=== PATIENT | female | born 1960 | race Caucasian/White ===

== ENCOUNTER 2017-10-25 13:30 | Day surgery (SDC) | payer MEDICAID, SELFPAY ==
[2017-10-25 14:00] VITALS: BP 178/99; PULSE 61; RESP 20
[2017-10-25 14:23] VITALS: BP 173/92; PULSE 72; RESP 18; TEMP 36.4; O2SAT 97
[2017-10-25 14:49] VITALS: BP 151/98; PULSE 75; RESP 20
--- NOTE | 2017-10-25 14:53 | P.PCN_ITS ---
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 She did not get much benefit after bilateral SI joint injections. She is complaining today primarily of low back pain. MRI does show degenerative changes throughout lumbar spine with facet arthropathy at multiple levels. We will do bilateral facet joint injection/medial branch block L3-L4, L4-L5 and L5-S1 today to see if this helps with pain symptoms. Procedure Details:: Lumbar medial branch block Informed consent was obtained and the risks and benefits of the procedure was explained to the patient. The back was prepped using ChloraPrep. The skin and subcutaneous tissues were anesthetized using lidocaine. I placed 22-gauge spinal needles into the facet joint/medial branches of L3-L4, L4-L5 and L5-S1 bilaterally. Needle placement was confirmed with dye. After this we injected 3 mL bupivacaine 0.25% and Depo-Medrol 13 mg into each facet joint/medial branch of L3-L4, L5 and L5-S1 bilaterally. We used a total of 80 mg Depo- Medrol for all 3 levels bilaterally. The patient tolerated the procedure well with no complications. Plan and Disposition:: We will follow-up with her in 2 weeks. We will reevaluate her symptoms at that time.
[2017-10-25 14:55] VITALS: BP 154/79; PULSE 69; RESP 20; TEMP 36.4; O2SAT 98
== END 2017-10-25 14:57 | disposition home or self-care (01) ==
PROVIDERS: Family Provider Internal Medicine Adolescent Medicine; PCP Internal Medicine Adolescent Medicine; Visit Provider Anesthesiology
DX: M51.36 Other intervertebral disc degeneration, lumbar region (principal); M47.896 Other spondylosis, lumbar region; M54.06 Panniculitis affecting regions of neck and back, lumbar region
CPT/HCPCS: 64493; 64494; 64495; J1030; Q9966

== ENCOUNTER → 2017-11-18 15:10 | Outpatient (POV) | payer MEDICAID, SELFPAY ==
[2017-11-18 15:18] VITALS: BP 146/83; PULSE 81; RESP 20; O2SAT 98; BMI 41.3
--- NOTE | 2017-11-18 15:28 | HMH.PAINSOAP ---
[facility] Pain Management SOAP Note Subjective:: Patient is a pleasant 56-year-old white female who we are treating for low back pain and bilateral hip pain. She is status post bilateral medial branch blocks of L3-L4, L4-L5 and L5-S1 bilaterally. She did very well from these with good relief of pain symptoms for 3-4 days. She was 80% better. Her pain is starting to return. We will request repeat medial branch blocks/facet joint injections of L3-L4, L4-5 and L5-S1 bilaterally again today. Objective:: Alert and oriented ?3 in no acute distress. Patient does have an antalgic gait. Motor strength of the lower extremities is 5/5. There is no gross sensory deficit. Assessment:: Degenerative disc disease of lumbar spine with lumbar spondylosis and facet arthropathy. Plan:: This patient got 80% relief for 3-4 days from bilateral facet joint injection/medial branch blocks of L3-L4, L4-5 and L5-S1. Her pain is starting to return. We will request repeat bilateral medial branch blocks/facet joint injections of L3-L4, L4-5 and L5-S1 again.
--- NOTE | 2017-11-18 15:31 | P.CONS_ITS ---
[facility] Pain Management SOAP Note Subjective:: Patient is a pleasant 56-year-old white female who we are treating for low back pain and bilateral hip pain. She is status post bilateral medial branch blocks of L3-L4, L4-L5 and L5-S1 bilaterally. She did very well from these with good relief of pain symptoms for 3-4 days. She was 80% better. Her pain is starting to return. We will request repeat medial branch blocks/facet joint injections of L3-L4, L4-5 and L5-S1 bilaterally again today. Objective:: Alert and oriented ?3 in no acute distress. Patient does have an antalgic gait. Motor strength of the lower extremities is 5/5. There is no gross sensory deficit. Assessment:: Degenerative disc disease of lumbar spine with lumbar spondylosis and facet arthropathy. Plan:: This patient got 80% relief for 3-4 days from bilateral facet joint injection/ medial branch blocks of L3-L4, L4-5 and L5-S1. Her pain is starting to return. We will request repeat bilateral medial branch blocks/facet joint injections of L3-L4, L4-5 and L5-S1 again.
== END ==
PROVIDERS: Family Provider Internal Medicine Adolescent Medicine; PCP Internal Medicine Adolescent Medicine; Visit Provider Anesthesiology
DX: M51.16 Intervertebral disc disorders with radiculopathy, lumbar region (principal)
CPT/HCPCS: 99212

== ENCOUNTER 2018-01-15 14:08 | Day surgery (SDC) | payer MEDICAID, SELFPAY ==
[2018-01-15 14:40] VITALS: BP 122/56; PULSE 80; RESP 18; TEMP 36.6; O2SAT 96; BMI 41.3
[2018-01-15 15:11] VITALS: BP 146/87; PULSE 89; RESP 8
[2018-01-15 15:12] VITALS: BP 139/86; PULSE 75; RESP 20
--- NOTE | 2018-01-15 15:18 | P.PCN_ITS ---
- Procedure Date: 01/15/18 Time: 15:10 Anesthesiologist:: Bert De Jesus MD Complications:: None Pre-procedure Diagnosis:: Degenerative disc disease of lumbar spine with lumbar spondylosis and facet arthropathy Post-procedure Diagnosis:: Same Indications for Procedure:: This patient is a pleasant 56-year-old white female who we are treating for low back pain and bilateral hip pain. She did well with previous medial branch blocks of L3-L4, L4-L5 and L5-S1 bilaterally. She was 80% better for a few weeks. Her pain is now returned. We will do repeat a branch blocks of L3-L4, L4-5 and L5-S1 today. Procedure Details:: Lumbar medial branch block Informed consent was obtained and the risks and benefits of the procedure was explained to the patient. The back was prepped using ChloraPrep. The skin and subcutaneous tissues were anesthetized using lidocaine. I placed 22-gauge spinal needles into the facet joint/medial branches of L3-L4, L4-L5 and L5-S1 bilaterally. Needle placement was confirmed with dye. After this we injected 3 mL bupivacaine 0.25% and Depo-Medrol 13 mg into each facet joint/medial branch of L3-L4, L5 and L5-S1 bilaterally. We used a total of 80 mg Depo- Medrol for all 3 levels bilaterally. The patient tolerated the procedure well with no complications. Plan and Disposition:: We will follow-up with her in 2 weeks. We will reevaluate her symptoms at that time.
[2018-01-15 15:29] VITALS: BP 135/63; PULSE 71; RESP 18; O2SAT 93
== END 2018-01-15 15:20 | disposition home or self-care (01) ==
LOC: SC.PAINP 14:10
PROVIDERS: Family Provider Internal Medicine Adolescent Medicine; PCP Internal Medicine Adolescent Medicine; Visit Provider Anesthesiology
DX: M51.36 Other intervertebral disc degeneration, lumbar region (principal); M12.88 Other specific arthropathies, not elsewhere classified, other specified site; M47.896 Other spondylosis, lumbar region
CPT/HCPCS: 64493; 64494; 64495; J1030; Q9966

== ENCOUNTER → 2018-02-04 09:03 | Outpatient (POV) | payer MEDICAID, SELFPAY ==
[2018-02-04 09:37] VITALS: BP 149/99; PULSE 74; RESP 18; BMI 41.3
--- NOTE | 2018-02-04 13:25 | HMH.PAINSOAP ---
[facility] Pain Management SOAP Note Subjective:: She is a pleasant 56-year-old white female who we are treating for low back pain. Patient is status post medial branch block which she reports 80% relief after. Patient states all of her pain has now returned. Patient is interested in moving forward with a rhizotomy of her facet joints. Patient would like to start with her left side. Patient rates her pain an 8 out of 10 today. Patient's tried and failed medications, physical therapy, anti-inflammatories, stretching therapy. Patient is not on any anticoagulation. ROS General: no recent weight change, no fever, no sleep disturbances Respiratory: no cough, no shortness of air, no recurring pulmonary infections Cardiovascular/Peripheral Vascular: No chest pain, No palpitations, no edema, no shortness of breath. Gastrointestinal: no incontinence, normal bowel movements reported Genitourinary: no incontinence Musculoskeletal: Back pain Psychiatric: normal mood/ affect Neurological: [denies weakness in extremities], [denies balance issues] Objective:: Physical Exam General: Alert and oriented x3, no acute distress, pleasant and cooperative, [on room air] Lungs: Resps E/U, Symmetrical chest expansion, Eyes: PERRL Musculoskeletal: Flexion and extension of lumbar spine somewhat guarded secondary to pain, deep tendon reflexes normal, strength in upper and lower extremities [5/5], normal gait noted, positive facet loading bilaterally lumbar spine Neurological: speech clear, word processor technician equal, no gross sensory deficits Assessment:: Lumbar spondylosis, lumbar facet arthropathy, degenerative disc disease of the lumbar spine Plan:: We will schedule RFA of the left L3-L4 L4-L5 L5-S1 facet joints/medial branch. We will have the patient come back in 2 weeks and we will repeat this on the right side. Given the efficacy of the facet joint injections I believe that this would be helpful. Patient is not on any anticoagulation therapy patient's tried and failed physical therapy, anti-inflammatories, medications. This note was dictated using voice recognition software and may contain errors or omissions
--- NOTE | 2018-02-04 13:29 | P.CONS_ITS ---
[facility] Pain Management SOAP Note Subjective:: She is a pleasant 56-year-old white female who we are treating for low back pain. Patient is status post medial branch block which she reports 80% relief after. Patient states all of her pain has now returned. Patient is interested in moving forward with a rhizotomy of her facet joints. Patient would like to start with her left side. Patient rates her pain an 8 out of 10 today. Patient 's tried and failed medications, physical therapy, anti-inflammatories, stretching therapy. Patient is not on any anticoagulation. ROS General: no recent weight change, no fever, no sleep disturbances Respiratory: no cough, no shortness of air, no recurring pulmonary infections Cardiovascular/Peripheral Vascular: No chest pain, No palpitations, no edema, no shortness of breath. Gastrointestinal: no incontinence, normal bowel movements reported Genitourinary: no incontinence Musculoskeletal: Back pain Psychiatric: normal mood/ affect Neurological: [denies weakness in extremities], [denies balance issues] Objective:: Physical Exam General: Alert and oriented x3, no acute distress, pleasant and cooperative, [ on room air] Lungs: Resps E/U, Symmetrical chest expansion, Eyes: PERRL Musculoskeletal: Flexion and extension of lumbar spine somewhat guarded secondary to pain, deep tendon reflexes normal, strength in upper and lower extremities [5/5], normal gait noted, positive facet loading bilaterally lumbar spine Neurological: speech clear, product management specialist equal, no gross sensory deficits Assessment:: Lumbar spondylosis, lumbar facet arthropathy, degenerative disc disease of the lumbar spine Plan:: We will schedule RFA of the left L3-L4 L4-L5 L5-S1 facet joints/medial branch. We will have the patient come back in 2 weeks and we will repeat this on the right side. Given the efficacy of the facet joint injections I believe that this would be helpful. Patient is not on any anticoagulation therapy patient's tried and failed physical therapy, anti-inflammatories, medications. This note was dictated using voice recognition software and may contain errors or omissions
== END ==
PROVIDERS: Family Provider Internal Medicine Adolescent Medicine; PCP Internal Medicine Adolescent Medicine; Visit Provider Clinical Nurse Specialist Family Health
DX: M47.816 Spondylosis without myelopathy or radiculopathy, lumbar region (principal)
CPT/HCPCS: 99212

== ENCOUNTER → 2018-02-21 14:28 | Outpatient (CLI) | payer MEDICAID, SELFPAY ==
--- NOTE | 2018-02-21 14:36 | XR_ITS ---
XR knee LT 3V HISTORY: ITS.REASON: TRAUMATIC BURSITIS, FALL, LT ANTERIOR KNEE PAIN ORDERING PHYSICIAN: Glenn Rodriguez MD PATIENT AGE: 57 years COMPARISON: FINDINGS: There is a small calcific density along the major aspect of the knee joint centrally and could be related to a small avulsion injury. No other abnormalities are evident of the bony structures.. No significant arthritic changes evident. Mild soft tissue swelling is present both the supra and infrapatellar region IMPRESSION: 1. Possible small avulsion injury of the anterior and central tibial region. 2. Mild soft tissue swelling in the supra and infrapatellar region
== END ==
PROVIDERS: PCP Internal Medicine Adolescent Medicine; Visit Provider Internal Medicine Adolescent Medicine
DX: M25.562 Pain in left knee (principal); M71.50 Other bursitis, not elsewhere classified, unspecified site; W19.XXXA Unspecified fall, initial encounter
CPT/HCPCS: 73562

== ENCOUNTER → 2018-04-16 11:54 | Outpatient (CLI) | payer MEDICAID, SELFPAY ==
[2018-04-16 13:15] LABS: Blood Urea Nitrogen 20 mg/dL (7-18); Creatinine,Serum 1.25 mg/dL (0.55-1.02); Estimated Glomerular Filt Rate 44 ml/min (>60); GFR (African American) 54 ML/MIN (>60)
== END ==
PROVIDERS: Visit Provider Internal Medicine Adolescent Medicine
DX: R51 Headache (principal); R25.1 Tremor, unspecified; Z79.899 Other long term (current) drug therapy
CPT/HCPCS: 36415; 82565; 84520

== ENCOUNTER → 2018-04-17 14:27 | Outpatient (CLI) | payer MEDICAID, SELFPAY ==
--- NOTE | 2018-04-17 14:31 | MR_ITS ---
MR head/brain wo/w con HISTORY: ITS.REASON: TREMOR, ACUTE NONINTRACTABLE HEADACHE ORDERING PHYSICIAN: Glenn Rodriguez MD PATIENT AGE: 57 years Comparison: 05/26/2013 TECHNIQUE: Standard multiplanar multiecho sequences are performed without and with gadolinium enhancement . FINDINGS: No midline shift, mass effect, intracranial hemorrhage, hydrocephalus, or acute infarction is evident. There are no enhancing lesions. The cerebellopontine angles, cerebellum, and brainstem are unremarkable.. Optic chiasm are unremarkable. No cerebellar ectopia. There is bulging disc at the C3-C4 level as seen on the sagittal images and may be causing some impingement upon the cord. This may be better evaluated with MRI of the cervical spine if clinically warranted. There is normal patel-white matter differentiation. There are scattered small T2 white matter hyperintensities which are nonspecific. No mastoid effusion or sinus air-fluid level. There is minimal mucosal thickening of the left ethmoid sinus posteriorly. IMPRESSION: 1. No acute intracranial findings. 2. Scattered punctate T2 white matter hyperintensities nonspecific. This may be seen with ischemic gliotic change from microvascular disease or with migraine headache. Demyelinating process felt to be less likely. 3. Bulging disc at C3-C4
== END ==
PROVIDERS: Family Provider Internal Medicine Adolescent Medicine; PCP Internal Medicine Adolescent Medicine; Visit Provider Internal Medicine Adolescent Medicine
DX: R51 Headache (principal); R25.1 Tremor, unspecified
CPT/HCPCS: 70553; A9576

== ENCOUNTER → 2018-04-28 13:16 | Outpatient (POV) | payer MEDICAID, SELFPAY ==
[2018-04-28 13:26] VITALS: BP 161/97; PULSE 76; RESP 18; O2SAT 98; BMI 40.9
--- NOTE | 2018-04-29 09:03 | HMH.PAINSOAP ---
[facility] Pain Management SOAP Note Subjective:: She is a pleasant 57-year-old white female who was day for follow-up after her lumbar RFA. Patient states that her pain has been relieved some however she has a new pain radiating from her back up and down into her legs and hips. Patient has never had an epidural injection before. Patient and I discussed both epidural injection and potentially neuro stimulation in the future. I did give the patient information on this. Patient currently on gabapentin from Dr. Chavez. Patient has not tried Lyrica before. Patient's tried and failed amitriptyline and Cymbalta. She is also failed anti-inflammatories. She rates her pain a 6 out of 10 today. ROS General: no recent weight change, no fever, no sleep disturbances Respiratory: no cough, no shortness of air, no recurring pulmonary infections Cardiovascular/Peripheral Vascular: No chest pain, No palpitations, no edema, no shortness of breath. Gastrointestinal: no incontinence, normal bowel movements reported Genitourinary: no incontinence Musculoskeletal: Back pain, radicular pain Psychiatric: normal mood/ affect Neurological: [denies weakness in extremities], [denies balance issues] Objective:: Physical Exam General: Alert and oriented x3, no acute distress, pleasant and cooperative, [on room air] Lungs: Resps E/U, Symmetrical chest expansion, Eyes: PERRL Musculoskeletal: Flexion and extension of lumbar spine somewhat guarded secondary to pain, deep tendon reflexes normal, strength in upper and lower extremities [5/5], [abnormal gait noted], positive straight leg raise test bilaterally at 30?. Neurological: speech clear, power plant inspector equal, no gross sensory deficits Assessment:: Narrative disc disease of the lumbar spine lumbar radiculopathy lumbar spondylosis Plan:: We will schedule L4-L5 lumbar epidural steroid injection for the patient. Patient's tried and failed physical therapy, chiropractic therapy, massage therapy, stretching therapy. Patient is continuing to be active at home. Patient is not on any anticoagulation therapy. I will follow-up with the patient after her injection. We will also start the patient on Lyrica 75 mg 1 tab p.o. twice daily we will give HER-2 weeks worth of medication to determine if this would be beneficial for her. I did give the patient information on neuro stimulation. This note was dictated using voice recognition software and may contain errors or omissions
--- NOTE | 2018-04-29 09:06 | P.CONS_ITS ---
[facility] Pain Management SOAP Note Subjective:: She is a pleasant 57-year-old white female who was day for follow-up after her lumbar RFA. Patient states that her pain has been relieved some however she has a new pain radiating from her back up and down into her legs and hips. Patient has never had an epidural injection before. Patient and I discussed both epidural injection and potentially neuro stimulation in the future. I did give the patient information on this. Patient currently on gabapentin from Dr. Chavez. Patient has not tried Lyrica before. Patient's tried and failed amitriptyline and Cymbalta. She is also failed anti-inflammatories. She rates her pain a 6 out of 10 today. ROS General: no recent weight change, no fever, no sleep disturbances Respiratory: no cough, no shortness of air, no recurring pulmonary infections Cardiovascular/Peripheral Vascular: No chest pain, No palpitations, no edema, no shortness of breath. Gastrointestinal: no incontinence, normal bowel movements reported Genitourinary: no incontinence Musculoskeletal: Back pain, radicular pain Psychiatric: normal mood/ affect Neurological: [denies weakness in extremities], [denies balance issues] Objective:: Physical Exam General: Alert and oriented x3, no acute distress, pleasant and cooperative, [ on room air] Lungs: Resps E/U, Symmetrical chest expansion, Eyes: PERRL Musculoskeletal: Flexion and extension of lumbar spine somewhat guarded secondary to pain, deep tendon reflexes normal, strength in upper and lower extremities [5/5], [abnormal gait noted], positive straight leg raise test bilaterally at 30?. Neurological: speech clear, property coordinator equal, no gross sensory deficits Assessment:: Narrative disc disease of the lumbar spine lumbar radiculopathy lumbar spondylosis Plan:: We will schedule L4-L5 lumbar epidural steroid injection for the patient. Patient's tried and failed physical therapy, chiropractic therapy, massage therapy, stretching therapy. Patient is continuing to be active at home. Patient is not on any anticoagulation therapy. I will follow-up with the patient after her injection. We will also start the patient on Lyrica 75 mg 1 tab p.o. twice daily we will give HER-2 weeks worth of medication to determine if this would be beneficial for her. I did give the patient information on neuro stimulation. This note was dictated using voice recognition software and may contain errors or omissions
== END ==
PROVIDERS: Family Provider Internal Medicine Adolescent Medicine; PCP Internal Medicine Adolescent Medicine; Visit Provider Clinical Nurse Specialist Family Health
DX: M47.816 Spondylosis without myelopathy or radiculopathy, lumbar region (principal)
CPT/HCPCS: 99212

== ENCOUNTER → 2018-06-09 10:17 | Outpatient (POV) | payer MEDICAID, SELFPAY ==
[2018-06-09 10:47] VITALS: BP 111/61; PULSE 79; RESP 18; O2SAT 98; BMI 41.3
--- NOTE | 2018-06-09 10:59 | HMH.PAINSOAP ---
[facility] Pain Management SOAP Note Subjective:: Patient is a pleasant 57-year-old white female who presents today for follow-up after lumbar epidural steroid injection. Patient states that her pain is actually worsened. Patient is having continually worsening pain and she states is different in nature. Patient states it originates in her low back and radiates up. Patient also having some new weakness in her bilateral lower extremities. Patient has not had a recent MRI. Patient also interested in returning to her neurosurgeon for evaluation. I believe that this would be beneficial she rates her pain an 8 out of 10 today. ROS General: no recent weight change, no fever, no sleep disturbances Respiratory: no cough, no shortness of air, no recurring pulmonary infections Cardiovascular/Peripheral Vascular: No chest pain, No palpitations, no edema, no shortness of breath. Gastrointestinal: no new onset incontinence, normal bowel movements reported Genitourinary: no new onset incontinence Musculoskeletal: Back pain, leg pain Psychiatric: normal mood/ affect Neurological: Weakness in bilateral lower extremities at times, [denies balance issues] Objective:: Physical Exam General: Alert and oriented x3, no acute distress, pleasant and cooperative, [on room air] Lungs: Resps E/U, Symmetrical chest expansion, Eyes: PERRL Musculoskeletal: Flexion and extension of lumbar spine somewhat guarded secondary to pain, deep tendon reflexes normal, strength in upper and lower extremities [5/5], slightly antalgic gait noted Neurological: speech clear, tree and shrub worker equal, no gross sensory deficits Assessment:: degenerative disc disease of lumbar spine with lumbar radiculopathy symptoms and lumbar spondylosis Plan:: We will order an MRI of the lumbar spine for the patient and send her for an evaluation with Dr. Alfonso. This note was dictated using voice recognition software and may contain errors or omissions
--- NOTE | 2018-06-09 11:02 | P.CONS_ITS ---
[facility] Pain Management SOAP Note Subjective:: Patient is a pleasant 57-year-old white female who presents today for follow-up after lumbar epidural steroid injection. Patient states that her pain is actually worsened. Patient is having continually worsening pain and she states is different in nature. Patient states it originates in her low back and radiates up. Patient also having some new weakness in her bilateral lower extremities. Patient has not had a recent MRI. Patient also interested in returning to her neurosurgeon for evaluation. I believe that this would be beneficial she rates her pain an 8 out of 10 today. ROS General: no recent weight change, no fever, no sleep disturbances Respiratory: no cough, no shortness of air, no recurring pulmonary infections Cardiovascular/Peripheral Vascular: No chest pain, No palpitations, no edema, no shortness of breath. Gastrointestinal: no new onset incontinence, normal bowel movements reported Genitourinary: no new onset incontinence Musculoskeletal: Back pain, leg pain Psychiatric: normal mood/ affect Neurological: Weakness in bilateral lower extremities at times, [denies balance issues] Objective:: Physical Exam General: Alert and oriented x3, no acute distress, pleasant and cooperative, [ on room air] Lungs: Resps E/U, Symmetrical chest expansion, Eyes: PERRL Musculoskeletal: Flexion and extension of lumbar spine somewhat guarded secondary to pain, deep tendon reflexes normal, strength in upper and lower extremities [5/5], slightly antalgic gait noted Neurological: speech clear, automatic i threading machine feeder equal, no gross sensory deficits Assessment:: degenerative disc disease of lumbar spine with lumbar radiculopathy symptoms and lumbar spondylosis Plan:: We will order an MRI of the lumbar spine for the patient and send her for an evaluation with Dr. Alfonso. This note was dictated using voice recognition software and may contain errors or omissions
== END ==
PROVIDERS: Family Provider Internal Medicine Adolescent Medicine; PCP Pediatrics; Visit Provider Clinical Nurse Specialist Family Health
DX: M51.16 Intervertebral disc disorders with radiculopathy, lumbar region (principal); M47.896 Other spondylosis, lumbar region
CPT/HCPCS: 99213

== ENCOUNTER → 2018-06-17 07:48 | Outpatient (CLI) | payer MEDICAID, SELFPAY ==
--- NOTE | 2018-06-17 07:50 | MR_ITS ---
MR lumbar spine wo con, MR 3-d myelogram/MRCP HISTORY: Low back pain with intermittent lateral leg pain. Pain radiates up the back. ITS.REASON: BACK PAIN ORDERING PHYSICIAN: Earnestine Sanchez PATIENT AGE: 57 years Comparison: MRI 09-09-2017 TECHNIQUE: Standard multiplanar multiecho sequences are performed without contrast. 3-D MIP and myelographic images are also rendered and reviewed FINDINGS: There is normal alignment. The spinal cord ends at the L1 level. Facet and ligamentum flavum hypertrophic change once again noted on the right at T10-T11 only imaged in the sagittal plane not significant change. T12-L1: Small anterior osteophytes. L1-L2: Moderate left-sided facet and ligamentum flavum hypertrophic change with severe left lateral recess narrowing impinging upon the left posterior lateral aspect of the thecal sac and posterior aspect of the L3 nerve root. L2-L3: Mild facet and ligamentum hypertrophic change with mild bilateral lateral recess narrowing. L3-L4: Facet and ligamentum flavum hypertrophy with bilateral lateral recess narrowing. L4-5: Bulging disc with facet and ligamentum flavum hypertrophy with moderate bilateral lateral recess and foraminal narrowing. Broad base left paracentral and foraminal disc protrusion is present at L4-L5 causing left lateral recess and left foraminal narrowing abutting the left L5 nerve root anteriorly. In addition there is a small central disc protrusion at this level as well. Is causing mild canal stenosis not significant changed L5-S1: Unremarkable. No fracture or dislocation. No destructive process. IMPRESSION: 1. Lower thoracic and lumbar spondylosis with facet arthropathy along with facet and ligamentum hypertrophy causing moderate right lateral recess narrowing at T10-T11 and severe left lateral recess narrowing at L1-L2 with impingement upon the L3 nerve root. Bilateral lateral recess narrowing at L2-L3 and L3-L4. 2. Bulging disc at L4-L5 with facet and ligamentum flavum hypertrophy with moderate bilateral lateral recess and foraminal narrowing. Broad base left paracentral and foraminal disc protrusion is noted at L4-L5 causing left lateral recess and left foraminal narrowing abutting the left L5 nerve root anteriorly. In addition there is a small central disc protrusion at this level as well. Is causing mild canal stenosis not significant changed
== END ==
PROVIDERS: Family Provider Internal Medicine Adolescent Medicine; PCP Pediatrics; Visit Provider Clinical Nurse Specialist Family Health
DX: M54.5 Low back pain (principal)
CPT/HCPCS: 72148; 76376

== ENCOUNTER → 2018-06-24 10:25 | Outpatient (POV) | payer MEDICAID, SELFPAY ==
[2018-06-24 10:38] VITALS: BP 120/79; PULSE 70; RESP 18; O2SAT 98; BMI 41.3
--- NOTE | 2018-06-24 10:55 | HMH.PAINSOAP ---
[facility] Pain Management SOAP Note Subjective:: Patient is a pleasant 57-year-old white female who presents today for follow-up in regards to her new MRI. Patient does have impingement shown in her MRI and her lumbar spine. Patient rates her pain a 7 out of 10. She states is almost unbearable. Patient is unable to get much relief with any kind of medications. Patient has been on meloxicam we discussed changing to another NSAID. Patient's been on tramadol and gabapentin with no relief. Patient tried Lyrica with no relief. Patient has been seen by Dr. Alfonso in the past and I believe that will be beneficial for her to be seen again. We will send her with her new MRI. ROS General: no recent weight change, no fever, no sleep disturbances Respiratory: no cough, no shortness of air, no recurring pulmonary infections Cardiovascular/Peripheral Vascular: No chest pain, No palpitations, no edema, no shortness of breath. Gastrointestinal: no incontinence, normal bowel movements reported Genitourinary: no incontinence Musculoskeletal: Back pain, left leg pain Psychiatric: normal mood/ affect Neurological: [denies weakness in extremities], [denies balance issues] Objective:: Physical Exam General: Alert and oriented x3, no acute distress, pleasant and cooperative, [on room air] Lungs: Resps E/U, Symmetrical chest expansion, Eyes: PERRL Musculoskeletal: Flexion and extension of lumbar spine somewhat guarded secondary to pain, deep tendon reflexes normal, strength in upper and lower extremities [5/5], [abnormal gait noted] Neurological: speech clear, toppiece chopper equal, no gross sensory deficits Assessment:: Degenerative disc disease lumbar spine with lumbar radiculopathy Plan:: We will send the patient to Dr. Alfonso for an evaluation. We will also change Mobic to Celebrex 100 mg 1 p.o. twice daily. Patient's been instructed to call the office if she has any issues prior to next appointment. This note was dictated using voice recognition software and may contain errors or omissions
== END ==
PROVIDERS: Family Provider Internal Medicine Adolescent Medicine; PCP Pediatrics; Visit Provider Clinical Nurse Specialist Family Health
DX: M51.16 Intervertebral disc disorders with radiculopathy, lumbar region (principal)
CPT/HCPCS: 99213

== ENCOUNTER → 2018-08-19 10:52 | Outpatient (POV) | payer MEDICAID, SELFPAY ==
--- NOTE | 2018-08-19 11:31 | HMH.PAINSOAP ---
[facility] Pain Management SOAP Note Subjective:: Patient is a pleasant 57-year-old white female in today for follow-up after seeing Dr. Alfonso. She was deemed not a surgical candidate at this time. Patient rates her pain an 8 out of 10 and states is unbearable. She has been on meloxicam tramadol and gabapentin with no relief. Patient's tried Lyrica. Patient would like to know what her options are. Patient's failed injective therapy. ROS General: no recent weight change, no fever, no sleep disturbances Respiratory: no cough, no shortness of air, no recurring pulmonary infections Cardiovascular/Peripheral Vascular: No chest pain, No palpitations, no edema, no shortness of breath. Gastrointestinal: no incontinence, normal bowel movements reported Genitourinary: no incontinence Musculoskeletal: Back pain, leg pain Psychiatric: normal mood/ affect Neurological: Weakness in bilateral lower extremity at times, [denies balance issues] Objective:: Physical Exam General: Alert and oriented x3, no acute distress, pleasant and cooperative, [on room air] Lungs: Resps E/U, Symmetrical chest expansion, Eyes: PERRL Musculoskeletal: Flexion and extension of lumbar spine somewhat guarded secondary to pain, deep tendon reflexes normal, strength in upper and lower extremities [5/5], [abnormal gait noted] Neurological: speech clear, senior windows systems administrator equal, no gross sensory deficits Assessment:: Degenerative disc disease lumbar spine with lumbar radiculopathy Plan:: The patient and I discussed options such as a spinal cord stimulator and a intrathecal pain pump. Patient is interested in the stimulator however she would like a second opinion. I believe that this would be beneficial. Patient states she has an appointment with Dr. milan in [place] for another opinion. We will call her in a drill Dosepak to see if this is beneficial to help her get to this appointment. This note was dictated using voice recognition software and may contain errors or omissions
--- NOTE | 2018-08-19 11:34 | P.CONS_ITS ---
[facility] Pain Management SOAP Note Subjective:: Patient is a pleasant 57-year-old white female in today for follow-up after seeing Dr. Alfonso. She was deemed not a surgical candidate at this time. Patient rates her pain an 8 out of 10 and states is unbearable. She has been on meloxicam tramadol and gabapentin with no relief. Patient's tried Lyrica. Patient would like to know what her options are. Patient's failed injective therapy. ROS General: no recent weight change, no fever, no sleep disturbances Respiratory: no cough, no shortness of air, no recurring pulmonary infections Cardiovascular/Peripheral Vascular: No chest pain, No palpitations, no edema, no shortness of breath. Gastrointestinal: no incontinence, normal bowel movements reported Genitourinary: no incontinence Musculoskeletal: Back pain, leg pain Psychiatric: normal mood/ affect Neurological: Weakness in bilateral lower extremity at times, [denies balance issues] Objective:: Physical Exam General: Alert and oriented x3, no acute distress, pleasant and cooperative, [on room air] Lungs: Resps E/U, Symmetrical chest expansion, Eyes: PERRL Musculoskeletal: Flexion and extension of lumbar spine somewhat guarded secondary to pain, deep tendon reflexes normal, strength in upper and lower extremities [5/5], [abnormal gait noted] Neurological: speech clear, casino dealer equal, no gross sensory deficits Assessment:: Degenerative disc disease lumbar spine with lumbar radiculopathy Plan:: The patient and I discussed options such as a spinal cord stimulator and a intrathecal pain pump. Patient is interested in the stimulator however she would like a second opinion. I believe that this would be beneficial. Patient states she has an appointment with Dr. milan in [place] for another opinion. We will call her in a drill Dosepak to see if this is beneficial to help her get to this appointment. This note was dictated using voice recognition software and may contain errors or omissions
[2018-08-19 11:39] VITALS: BP 153/91; PULSE 75; RESP 18; O2SAT 98; BMI 42.0
== END ==
PROVIDERS: PCP Internal Medicine Adolescent Medicine; Visit Provider Clinical Nurse Specialist Family Health
DX: M51.16 Intervertebral disc disorders with radiculopathy, lumbar region (principal)
CPT/HCPCS: 99213